=== PATIENT | female | born 1985 | race Asian ===

== ENCOUNTER → 2016-08-28 | Outpatient (CLI) | payer OTHER | LOC: EDSTATUS 14:56 → FIMAGING 14:56 | PROVIDERS: ATTEND Nurse Practitioner | DX: R50.9 Fever, unspecified (principal); R05 Cough ==

== ENCOUNTER → 2018-09-19 | Outpatient (CLI) | payer OTHER | LOC: FIMAGING 09:45 | PROVIDERS: ATTEND Internal Medicine Infectious Disease | DX: R55 Syncope and collapse (principal); B20 Human immunodeficiency virus [HIV] disease ==